=== PATIENT | male | born 1955 | race Caucasian/White ===

== ENCOUNTER → 2022-02-01 | Outpatient (CLI) | payer MEDICARE ==
[2022-02-01 11:49] LABS: INR 0.9 (<1.2); Partial Thromboplastin Time 24.8 sec (22.0-30.0); Prothrombin Time 10.2 sec (9.0-12.0)
[2022-02-01 14:26] LABS: HCT 43.6 % (39.6-50.0); HGB 14.2 g/dL (13.0-17.0); MCH 26.9 pg (27.0-32.0); MCHC 32.6 g/dL (32.0-37.0); MCV 82.6 fL (80.0-97.0); Mean Platelet Volume 9.8 fL (9.5-12.2); NRBC Per 100 WBC 0 /100 WBCS (0.0-0.0); Platelet Count 248 X 10*3/uL (140-440); RBC 5.28 X 10*6/uL (4.40-5.60); RDW 14.6 % (11.5-14.5); WBC 7.15 X 10*3/uL (4.50-10.00)
[2022-02-01 15:26] LABS: African American GFR (CKD) 111.3 (60.0-200.0); Albumin 4.1 g/dL (3.8-4.9); Albumin/Globulin Ratio 1.52 (1.60-3.17); Anion Gap 16.3 mmol/L (10.00-18.00); BUN/Creat Ratio 23.34 Ratio (12.00-20.00); Blood Urea Nitrogen 17.6 mg/dL (9.0-27.0); Calcium 8.9 mg/dL (8.7-10.3); Globulin 2.7 g/dL (1.6-3.3); Non-African American GFR(CKD) 96.1 (60.0-200.0); Potassium 4.4 mmol/L (3.5-5.5); Total Bilirubin 0.4 mg/dL (0.30-1.20); Total Protein 6.8 g/dL (6.2-8.2)
[2022-02-01 18:29] LABS: Appearance,Urine Clear (Clear); Bilirubin,Urine Negative (Negative); Blood,Urine Negative (Negative); Color,Urine Dark Yellow (Yellow); Ketones,Urine Trace mg/dL (Negative); Nitrite,Urine Negative (Negative); PH, Urine 5.5 (5.0-8.0); Specific Gravity,Urine 1.028 (1.001-1.030)
== END | disposition home or self-care (01) ==
LOC: LABPAT 10:22
PROVIDERS: ATTEND Orthopaedic Surgery Sports Medicine
DX: Z01.818 Encounter for other preprocedural examination (principal); Z01.812 Encounter for preprocedural laboratory examination
CPT/HCPCS: 80053; 81003; 85027; 85610; 85730; 87070

== ENCOUNTER 2022-02-16 05:33 | Observation (INO) | payer MEDICARE ==
[2022-02-13 17:43] VITALS: BMI 20.9
[~2022-02-16 05:33] MED LIST: ACETAMINOPHEN TAB 500 MG TAB PO PRN; GABAPENTIN 300 MG CAP PO PRN; MELOXICAM 7.5 MG TAB PO PRN; ONDANSETRON 4 MG/2 ML VIAL IVP PRN; TRANEXAMIC ACID IN NACL,ISO-OS 1,000 MG in SALINE 1 100ML.BAG IVPB PRN
[2022-02-16 06:39] LABS: Glucose,Whole Blood 101 mg/dL (70-110)
[2022-02-16] MEDS ORDERED: LACTATED RINGERS 1,000 ML IV ONE (06:39)
[2022-02-16] MEDS ORDERED: MIDAZOLAM 2 MG/2 ML VIAL IVP ONE (06:41)
[2022-02-16] MEDS ORDERED: fentaNYL (PF) 50 MCG/ML 2 ML AMP IVP ONE (06:41)
[2022-02-16] MEDS ORDERED: DEXAMETHASONE SOD PHOSPHATE 4 MG/ML 1 ML VIAL IVP ONE (07:05)
[2022-02-16] MEDS ORDERED: TEMAZEPAM 15 MG CAP PO PRN (07:11)
[2022-02-16] MEDS ORDERED: traMADol 50 MG TAB PO PRN (07:11)
[2022-02-16] MEDS ORDERED: MAGNESIUM HYDROXIDE 2,400 MG/10 ML CUP PO PRN (07:11)
[2022-02-16] MEDS ORDERED: ROPIVACAINE 5 MG/ML 30 ML VIAL ONE ×2 (07:11)
[2022-02-16] MEDS ORDERED: NALOXONE 0.4 MG/ML 1 ML VIAL IV PRN (07:11)
[2022-02-16] MEDS ORDERED: ONDANSETRON 4 MG/2 ML VIAL IVP PRN (07:11)
[2022-02-16] MEDS ORDERED: PROPOFOL 10 MG/ML 20 ML VIAL IV ONE ×2 (07:11)
[2022-02-16] MEDS ORDERED: HYDROmorphone 1 MG/ML 1 ML SYRINGE IVP PRN (07:11)
[2022-02-16] MEDS ORDERED: PHENYLEPHRINE-0.9% NACL SYG 1,000 MCG/10 ML SYRINGE ONE ×2 (07:11)
[2022-02-16] MEDS ORDERED: diazePAM 5 MG TAB PO PRN (07:11)
[2022-02-16] MEDS ORDERED: SODIUM CHLORIDE 0.9% (PF) 10 ML VIAL ONE ×2 (07:11)
[2022-02-16] MEDS ORDERED: TRANEXAMIC ACID IN NACL,ISO-OS 1,000 MG/100 ML BAG ONE (07:11)
[2022-02-16] MEDS ORDERED: ACETAMINOPHEN TAB 325 MG TAB PO PRN (07:11)
[2022-02-16] MEDS ORDERED: HYDROmorphone 0.5 MG/0.5 ML SYRINGE IVP PRN ×2 (07:11)
[2022-02-16] MEDS ORDERED: NA PHOS,M-B/NA PHOS,DI-BA 133 ML ENEMA RECTAL PRN (07:11)
[2022-02-16] MEDS ORDERED: MIDAZOLAM 2 MG/2 ML VIAL ONE ×2 (07:11)
[2022-02-16] MEDS ORDERED: bisacodyL 10 MG SUPP RECTAL PRN (07:11)
[2022-02-16] MEDS ORDERED: HYDROcodone/APAP 7.5-325MG 1 EACH TAB PO PRN ×2 (07:16)
[2022-02-16] MEDS ORDERED: ceFAZolin 3,000 MG in SODIUM CHLORIDE 0.9% IRRIGATIO 3,000 ML IRRIGATION ONE (07:20)
[2022-02-16] MEDS ORDERED: ROPIVACAINE 0.2%-NS ON-Q PUMP 1,090 MG, EMPTY PAIN BALL 1 EACH MISCELLANE PRN (08:32)
--- NOTE | 2022-02-16 09:48 | OP ---
OPERATIVE REPORT DATE OF PROCEDURE: 02/16/2022. SURGEON: Jossue Monzon MD. PAN PULLER: Amilcar JOYNER. PREOPERATIVE DIAGNOSIS: Left knee osteoarthrosis. POSTOPERATIVE DIAGNOSIS: Left knee osteoarthrosis. OPERATION: Left total knee arthroplasty. ANESTHESIA: Spinal with sedation. ESTIMATED BLOOD LOSS: 100 mL. TOURNIQUET: Tourniquet time was 51 minutes at 250 mmHg. COMPLICATIONS: None apparent. DRAINS: None. DISPOSITION: Postanesthesia care unit. INDICATIONS: Ever is a very pleasant 67-year-old male with longstanding history of left knee pain. History and physical examination are consistent with advanced left knee osteoarthrosis. He has been through significant operative management up to this point. Further treatment options were discussed and he has decided to go forward with left total knee arthroplasty. The risks, procedure were discussed with him in detail. These risks include, but are not limited to risk of infection, nerve damage, bleeding, pain, and a small risk of deep vein thrombosis which could lead to fatal pulmonary embolism. There is also risk of loosening of the implant which could require revision operation. The patient understands these risks. All of his questions were answered to his satisfaction. Appropriate informed consent was obtained. DESCRIPTION OF PROCEDURE: The patient identified in the preoperative holding area. Surgical site was marked by both the patient and myself. He was given 2 grams of Ancef IV for prophylactic purposes. He was then transferred to the operative suite. He was placed supine on the operative table. Spinal anesthetic was then administered, dosed per the anesthesia without apparent complication. Examination under anesthesia was then performed. The patient was 2-3 degrees shy of full extension. He had 100 degrees of flexion. Medial collateral ligament, lateral collateral ligament posterior cruciate ligaments were stable. Tourniquet was then placed high on the left upper thigh well-padded in preparation for surgery. The patient's left lower extremity was then prepped and draped in usual sterile fashion. Standard surgical pause undertaken to ensure that we were operating on the correct site and that appropriate preoperative antibiotics were given. All staff were in agreement and we proceeded. The outlines of the patella were marked surgical pen. A planned 12 cm vertical incision centered over the patella was marked with a surgical pen. Leg was then exsanguinated with an Esmarch dressing. The knee was then flexed and tourniquet inflated to 250 mmHg. The total tourniquet time for the procedure was 51 minutes. Incision was then made with a 10 blade scalpel. Dissection was carried down sharply overlying fascia. Great care was taken to minimize the skin flaps. The knee was then exposed using a standard medial parapatellar approach. A small cuff of quadriceps tendon was then left for suturing. He was in a bit of varus preoperatively. A standard medial release was then made. Superficial medial collateral ligament was dissected off the bone around the posterior aspect of the proximal tibia. The medial meniscus was then excised as well. The lateral meniscus was also released anteriorly. The leg was then externally rotated. The patella was everted. The knee was flexed. Retractors then placed to protect the collateral ligaments. I then proceeded to remove the infrapatellar fat pad. This was excised sharply tangentially with fibers of the patellar tendon. I then proceeded to remove the peripheral osteophytes. This was done with a rongeur. I then proceeded with the distal femoral resection. He did have near full extension. A planned 9 mm resection was then done. The femoral canal was then entered in the midline of the femur approximately 10 mm anterior to the origin of the posterior cruciate ligament. The desmond was then advanced on the center femur and placed intramedullary. Based on the preoperative radiographs, the angle between the anatomic and mechanical axis of the femur was approximately 4-5 degrees with a valgus angle of the distal femoral cutting guide was then set at 4 degrees for the left knee. The distal femoral cutting guide was then advanced over the intramedullary desmond. This was seated firmly against the femur. Then as mentioned planned to take 9 mm off the distal femur. The cutting block was then secured onto the femur with pins. The jig was then removed. The distal femoral cut made through the slot of the block. The pins were then removed and the distal cutting block was removed. The axes of the distal femoral cuts was checked with 2 flat bars. I then proceeded with femoral sizing. Posterior resting sizing guide was held firmly against the resected distal surface of the femur. The posterior condyles were resting on the posterior plane of the guide. The sizing guide was then placed on the anterior femur. The size was measured as a size 9. I then assessed for femoral rotation. The plan was for 3 degrees of external rotation with 3 degrees of external rotation was placed onto the jig. Then, these holes were then marked. I then confirmed the rotation by 3 separate methods. This done using epicondylar axis as well as Whitesides line and posterior referencing. It was deemed that the external rotation was proper. I then went forward placing the femoral cutting block. This was placed over the previously placed pin holes. The Myron wing was then placed on the anterior slots to ensure that we would not notch the anterior femur with the anterior femoral cut. I then proceeded with the anterior femoral cut. This was flush with the anterior cortex of the femur. The posterior cuts were then made followed by the anterior chamfer cut, then the posterior chamfer cut. The cutting block was then removed. Throughout the resection, the collateral ligaments were protected with retractors. I then placed a trial size 9 femur. It was slightly wide with a narrow fit very nicely medial-lateral and fit flush with the distal end of the femur. The drill holes were then made. I then proceeded with the tibial cut. I planned for cruciate retaining knee. The guide was placed in separate varus valgus and for slope. Height set for approximate 2 mm resection from the medial tibial plateau which was the lower side. I was happy with the alignment and amount of resection. The cutting block was then pinned to the proximal tibia. The alignment desmond was removed. The proximal tibia was resected with a reciprocating saw. Again, this was done with retractors protecting the collateral ligaments as well as the posterior cruciate ligament. I then proceeded to evaluate the flexion extension gaps. A 10 mm block was then placed. The flexion and extension gaps were equal. I then proceed with resection of posterior osteophytes. He had very minimal posterior osteophytes. This was done using a curved osteotome. This resected the posterior osteophytes. The posterior capsule stripping was done off the posterior aspect of the femur at this time. The osteophytes were then removed. I then proceed with resection of the patella. The thickness of patella was measured using the caliper. The thickness was 22 mm. The thickness of the anticipated patellar dome was taken into account. Resection was then performed and confirmed to be equal in 4 quadrants using a caliper. Approximately 14 mm of bone remained after the resection. A 32 x 9 mm standard patellar trial was then placed. The holes drilled. The trial was then placed. I then proceeded with the sizing tibial plate. A size E tibial plate fit very nicely. I then placed the trial femur the tibial tray and patellar button. A 10 mm trial tibial insert was also placed. The components fit very nicely. He had full extension and flexion. The extension and flexion gaps were equal and stable to both varus and valgus stress. The patella tracked appropriately. The tibial tray rotation was then marked with a Bovie. This was externally rotated properly. I then proceeded with the tibial preparation. I first drilled the femoral holes and removed femoral component. The tibial tray was then set for proper external rotation as well as mediolateral placement onto the tibia. It was then pinned into place. I then proceeded with punching the keel. I then decided to proceed with cementing of all our components. The knee was thoroughly irrigated with sterile saline solution via pulse lavage. The lateral geniculate artery was identified and cauterized. All blood was removed from the bone of the tibia femur and patella with pulse lavage. I then proceeded with cementing. Two packs of antibiotic bone cement prepared on the back table by the roving technician. I then proceed with cementing the tibia first. Cement was impacted into the keel as well as deeply seated into the bone. A second coat of cement was then placed. The tibia was then impacted into place. Excess cement was removed with Zane's and Joker's. I then proceeded with cementing of the femoral component. The femoral component was also cemented using standard technique. Excess cement was removed. A 10 mm trial insert was then placed into the knee. It was brought into full extension with a constant axial load placed until the cement had hardened. The patellar component was then cemented. This was held firmly with a compressive device until the cement had dried. When the cement had dried, the knee was taken out of extension. All excess cement was removed from around the prosthesis. I then trialed the 10 mm insert. Flexion extension gaps were appropriate. The knee was stable. It came into full extension. I decided to go forward with 10 mm medial congruent cruciate cross-linked cruciate- retaining tibial insert. The polyethylene was then placed onto the tibial tray and locked in place. The knee was then reduced. The knee was again further irrigated with sterile saline solution with antibiotic added. The tourniquet was then deflated. The total tourniquet time for the procedure was 51 minutes at 250 mmHg. Final components were Sue Persona size 9 narrow cruciate-retaining femoral component, a size E tibial tray, a 10 mm medial congruent cruciate-retaining polyethylene insert and a 32 x 9 mm patella. I then proceeded with closure. Again, the knee was thoroughly irrigated. The quadriceps tendon and the medial retinaculum were reapproximated with #2 Ethibond suture. The extensor mechanism was then closed with a running #2 Quill suture. Subcutaneous tissues were closed with 2-0 Vicryl interrupted suture. The skin was closed with a running 3-0 Quill suture. Dermabond was applied to the incision. Sterile compressive dressings were applied. All sponge and needle counts were deemed correct prior to closure. The patient tolerated procedure without apparent complication. He was transferred to recovery room in stable condition. MMODL / IJN: [id number] /
--- NOTE | 2022-02-16 09:50 | XR ---
EXAMINATION TYPE: XR knee limited LT DATE OF EXAM: 02/16/2022 COMPARISON: None HISTORY: Postop evaluation post replacement TECHNIQUE: 2 view left knee FINDINGS: Tibial and femoral components of the place. Postsurgical changes in the soft tissues no acu te fracture or dislocation is evident. IMPRESSION: 1. No acute fractures post knee replacement.
--- NOTE | 2022-02-16 09:53 | P.ANPRN ---
Procedure Note - Anesthesia - Nerve Block Performed Left Adductor Canal Time Out Performed: Yes (6:40) Date of Procedure: 02/16/22 Procedure Start Time: :40 Procedure Stop Time: 06:51 Location of Patient: PreOp Indication: Acute Post-Operative Pain, Requested by Surgeon (Dr Monzon) Sedation Type: Sedate with meaningful contact maintained Preparation: Sterile Prep, Sterile Dressing Position: Supine Catheter: Indwelling Needle Types: Pajunk Needle Gauge: 21 Ultrasound used to visualize needle placement: Yes Ultrasound used to observe medication spread: Yes Injectate: 0.5% Ropivacaine (see comment for volume) (15cc) Blood Aspirated: No Pain Paresthesia on Injection Noted: No Resistance on Injection: Normal Image Stored and Saved: Yes Events: Uneventful and Well Tolerated
--- NOTE | 2022-02-16 09:55 | P.ANPRN ---
Procedure Note - Anesthesia - Nerve Block Performed Left iPack Time Out Performed: Yes Date of Procedure: 02/16/22 Procedure Start Time: 06:52 Procedure Stop Time: 06:58 Location of Patient: PreOp Indication: Acute Post-Operative Pain, Requested by Surgeon (Dr Monzon) Sedation Type: Sedate with meaningful contact maintained Preparation: Sterile Prep Position: Supine Catheter: None Needle Types: Pajunk Needle Gauge: 21 Ultrasound used to visualize needle placement: Yes Ultrasound used to observe medication spread: Yes Injectate: 0.5% Ropivacaine (see comment for volume) (15cc +5cc PF Normal saline) Blood Aspirated: No Pain Paresthesia on Injection Noted: No Resistance on Injection: Normal Image Stored and Saved: Yes Events: Uneventful and Well Tolerated
[2022-02-16] MEDS ORDERED: LACTATED RINGERS 1,000 ML IV SCH (11:47)
[2022-02-16] MEDS ORDERED: DEXAMETHASONE SOD PHOSPHATE 4 MG/ML 1 ML VIAL IV ONE (11:47)
[2022-02-16] MEDS ORDERED: ONDANSETRON 4 MG/2 ML VIAL IVP ONE (11:47)
[2022-02-16] MEDS: LACTATED RINGERS 1,000 ML IV SCH ×2 (11:53→14:45)
[2022-02-16] MEDS: traMADol 50 MG TAB PO SCH ×3 (12:51→23:59)
--- NOTE | 2022-02-16 15:31 | P.CONS ---
History of Present Illness - Reason for Consult Consult date: 02/16/22 Physical management Requesting physician: Jossue Monzon - Chief Complaint Left knee pain - History of Present Illness This is a pleasant 67-year-old patient. Dr. Clemons. Patient has undergone left total knee arthroplasty. Postprocedure pain is controlled. Patient did get to the bathroom. No nausea vomiting. Patient has arthritis in all to point joints. Has tried conservative measurements. Does have analgesics at home. Symptoms of progressive the point that he required surgery. Patient also has BPH. Not taking any medications for the same. Also has nocturia and does get up at night to make urine. Sleep does get interrupted from the same. Review of systems: GEN.: None EYES: None HEENT: None NECK: None RESPIRATORY: None CARDIOVASCULAR: None GASTROINTESTINAL: None GENITOURINARY: Nocturia MUSCULOSKELETAL: Pain in many joints LYMPHATICS: None HEMATOLOGICAL: None PSYCHIATRY: None NEUROLOGICAL: None Past medical history to include: Osteoarthritis, BPH, nocturia, varicose veins, COPD Social history: . Retired. On the [employer]. Smoking less than a pack a day and a smoker most of life. Family history: Reviewed, noncontributory to presentation Physical examination: VITAL SIGNS: 97.1, 75, 18, 128.7, 94% room air] GENERAL: BMI 20.7, reclining in bed awake comfortable. EYES: Pupils equal. Conjunctiva normal. HEENT: External appearance of nose and ears normal, oral cavity grossly normal. NECK: JVD not raised; masses not palpable. HEART: First and second heart sounds are normal; no edema. LUNGS: Respiratory rate normal; clear to auscultation. ABDOMEN: Soft, nontender, liver spleen not palpable, no masses palpable. PSYCH: Alert and oriented x3; mood and affect normal. MUSCULOSKELETAL:No Clubbing/cyanosis;muscles-grossly intact. Evidence of OA in many joints. Dressing over the left knee. NEUROLOGICAL: Cranial nerves grossly intact; no facial asymmetry, power and sensation grossly intact. LYMPHATICS: No lymph nodes palpable in the axilla and neck INVESTIGATIONS, reviewed in the clinical context: White count 7.1 hemoglobin 14.2 platelets 248 potassium 4.4 creatinine 0.8 Assessment and plan: -Left total knee arthroplasty. Aspirin 81 mg twice a day for DVT prophylaxis. IV Ancef for infection prophylaxis. Pain control. -BPH Discussed at length with the patient. Patient has not wanted to take any medications for the same -Nocturia likely from BPH with overflow Discussed medications with the patient -COPD in a current smoker No symptoms -Chronic nicotine dependence, cigarette smoker Nicotine patch *For DVT prophylaxis. Nicotine patch. Care was discussed with the patient. Questions answered. Thank you Dr. Monzon Past Medical History Past Medical History: Asthma, Osteoarthritis (OA), Rheumatoid Arthritis (RA) Additional Past Medical History / Comment(s): Hx HPV. BPH. Varicose veins. History of Any Multi-Drug Resistant Organisms: None Reported Past Surgical History: Tonsillectomy Additional Past Surgical History / Comment(s): Bilat cataracts. Dental surgery Past Anesthesia/Blood Transfusion Reactions: No Reported Reaction Smoking Status: Current every day smoker - Past Family History Mother Family Medical History: No Reported History Medications and Allergies Home Medications Medication Instructions Recorded Confirmed Type Albuterol Sulfate [Albuterol 2 puff INHALATION QID PRN 02/13/22 02/16/22 History Sulfate Hfa] Hydrocodone/Acetaminophen 1 each PO HS PRN 02/13/22 02/16/22 History [Hydrocodone/Acetaminophen 7.5-325] traMADol HCl [Ultram] 50 mg PO Q4-6H PRN 02/13/22 02/16/22 History Allergies Allergy/AdvReac Type Severity Reaction Status Date / Time No Known Allergies Allergy Verified 02/16/22 05:48 Physical Exam Vitals: Vital Signs Temp Pulse Resp BP Pulse Ox 02/16/22 11:00 61 16 120/77 95 02/16/22 10:45 68 17 117/79 94 L 02/16/22 10:30 64 22 124/84 96 02/16/22 10:15 70 16 118/91 94 L 02/16/22 10:00 75 18 128/72 94 L 02/16/22 09:45 97.1 F L 02/16/22 09:38 83 15 118/66 96 02/16/22 09:23 79 16 113/60 97 02/16/22 09:08 80 16 119/62 97 02/16/22 07:01 83 16 124/70 100 02/16/22 06:07 98.2 F 86 18 137/81 99 Intake and Output 02/16/22 02/16/22 02/16/22 06:59 14:59 22:59 Intake Total 200 501 Output Total 100 Balance 200 401 Intake: IV 200 501 Output: Estimated Blood Loss 100 Other: Weight 65.5 kg 65.5 kg
[2022-02-16] MEDS: ASPIRIN 81 MG PO SCH (19:32)
[2022-02-16] MEDS ORDERED: SENNOSIDES-DOCUSATE SODIUM 1 EACH TAB PO SCH (21:00)
[2022-02-17] MEDS ORDERED: HYDROmorphone 0.5 MG/0.5 ML SYRINGE IVP PRN (07:00)
[2022-02-17 08:05] VITALS: BP 113/70; RESP 17; TEMP 98.7
[2022-02-17] MEDS: traMADol 50 MG TAB PO SCH (08:58)
[2022-02-17] MEDS: ASPIRIN 81 MG PO SCH (08:58)
[2022-02-17 09:04] LABS: Basophils # (A) 0.03 X 10*3/uL (0.00-0.10); Basophils % (A) 0.3 %; Eosinophils # (A) 0.02 X 10*3/uL (0.04-0.35); Eosinophils % (A) 0.2 %; HCT 35.2 % (39.6-50.0); HGB 11.8 g/dL (13.0-17.0); Immature Grans, Automated 0.3 %; Lymphocytes # (A) 2.48 X 10*3/uL (0.90-5.00); Lymphocytes % (A) 23.4 %; MCH 27.6 pg (27.0-32.0); MCHC 33.5 g/dL (32.0-37.0); MCV 82.2 fL (80.0-97.0); Mean Platelet Volume 9.8 fL (9.5-12.2); Monocytes # (A) 1.06 X 10*3/uL (0.20-1.00); NRBC Per 100 WBC 0 /100 WBCS (0.0-0.0); Neutrophils % (A) 65.8 %; Platelet Count 246 X 10*3/uL (140-440); RBC 4.28 X 10*6/uL (4.40-5.60); RDW 14.1 % (11.5-14.5); WBC 10.62 X 10*3/uL (4.50-10.00)
--- NOTE | 2022-02-17 10:18 | P.PN ---
Progress Note - Text 02/17/22 601 67-year-old male status post total knee replacement by Dr. Monzon. Patient seen and evaluated this morning for postop pain control, On-Q pump running at 8 mL an hour with a VAS of 1. Dressing clean dry and intact. Plan to continue On-Q pump infusion
--- NOTE | 2022-02-17 10:27 | P.DS ---
Providers Date of admission: 02/17/22 07:16 Expected date of discharge: 02/17/22 Attending physician: Jossue Monzon Consults: 02/16/22 07:11 Consult Physician Routine Consulting Provider: Aryan Francisco Consult Reason/Comments: post op medical management Do you want consulting provider notified?: Yes Primary care physician: Johny Clemons - Discharge Diagnosis(es) (1) S/P total knee arthroplasty Patient was admitted to the OR on 02/16/22 to undergo a left total knee arthroplasty. He had failed conservative measures as an outpatient and desired to proceed with elective surgery after given informed consent. He underwent the above procedure which he tolerated well without complication. Postoperative hospital course has remained without complication. On day of discharge he is afebrile, vital signs stable, labs within acceptable ranges, tolerating by mouth meds and diet, voiding without difficulty, positive flatus, denies abdominal pain or calf pain, pain is controlled on oral pain medication and has no new complaints. Wound is benign, neurovascular status is intact, calf is soft and nontender, abdomen soft and nontender. Review of systems is negative for numbness, tingling, fever, chills, chest pain, shortness of breath, nausea, vomiting, dizziness, headaches, slurred speech or other. Current Visit: Yes Status: Acute Priority: Medium Procedures: Left TKA Patient Condition at Discharge: Good Plan - Discharge Summary Discharge Rx Participant: No New Discharge Prescriptions: New Acetaminophen Tab [Tylenol] 650 mg PO Q4HR PRN tab PRN Reason: Pain Scale 1 to 5 Docusate [Colace] 100 mg PO BID #60 capsule HYDROcodone/APAP 7.5-325MG [Eden 7.5-325] 1 - 2 each PO Q6HR PRN #42 tab PRN Reason: Pain Ferrous Sulfate [Feosol] 325 mg PO BID #60 tab Aspirin [Adult Low Dose Aspirin EC] 81 mg PO BID #60 tab Continue Hydrocodone/Acetaminophen [Hydrocodone/Acetaminophen 7.5-325] 1 each PO HS PRN PRN Reason: Pain traMADol HCl [Ultram] 50 mg PO Q4-6H PRN PRN Reason: Pain Albuterol Sulfate [Albuterol Sulfate Hfa] 2 puff INHALATION QID PRN #1 each PRN Reason: Shortness Of Breath Discharge Medication List Hydrocodone/Acetaminophen [Hydrocodone/Acetaminophen 7.5-325] 1 each PO HS PRN 02/13/22 [History] traMADol HCl [Ultram] 50 mg PO Q4-6H PRN 02/13/22 [History] Acetaminophen Tab [Tylenol] 650 mg PO Q4HR PRN tab 02/17/22 [Rx] Albuterol Sulfate [Albuterol Sulfate Hfa] 2 puff INHALATION QID PRN #1 each 02/17/22 [Rx] Aspirin [Adult Low Dose Aspirin EC] 81 mg PO BID #60 tab 02/17/22 [Rx] Docusate [Colace] 100 mg PO BID #60 capsule 02/17/22 [Rx] Ferrous Sulfate [Feosol] 325 mg PO BID #60 tab 02/17/22 [Rx] HYDROcodone/APAP 7.5-325MG [Eden 7.5-325] 1 - 2 each PO Q6HR PRN #42 tab 02/17/22 [Rx] Follow up Appointment(s)/Referral(s): Johny Clemons DO [Primary Care Provider] - 1 Week [facility] [NON-STAFF] - As Needed Jossue Monzon MD [STAFF PHYSICIAN] - 10 Days Activity/Diet/Wound Care/Special Instructions: Weight bear as tolerated May shower after 3 days if no bleeding Keep wound clean and dry Take meds as directed F/U with Dr. Monzon in office Discharge Disposition: HOME WITH HOME HEALTH SERVICES
[2022-02-17 10:54] VITALS: PULSE 87
[2022-02-17] MEDS ORDERED: MULTIVITAMINS, THERA 1 EACH TAB PO SCH (12:00)
--- NOTE | 2022-02-17 17:12 | P.PN ---
Progress Note - Text Progress Note Date: 02/17/22 - Chief Complaint Left knee pain Hospital course This is a pleasant 67-year-old patient. Dr. Clemons. Patient has undergone left total knee arthroplasty. Postprocedure pain is controlled. Patient did get to the bathroom. No nausea vomiting. Patient has arthritis in all to point joints. Has tried conservative measurements. Does have analgesics at home. Symptoms of progressive the point that he required surgery. Patient also has BPH. Not taking any medications for the same. Also has nocturia and does get up at night to make urine. Sleep does get interrupted from the same. February 17: Some pain at the operative site. Discussed with patient. Ferrous sulfate. Questions answered. Oral intake fair. Current medications reviewed Past medical history to include: Osteoarthritis, BPH, nocturia, varicose veins, COPD Social history: . Retired. On the [employer]. Smoking less than a pack a day and a smoker most of life. Family history: Reviewed, noncontributory to presentation Physical examination: VITAL SIGNS: 98.7, 66, 17, 103/70, 96% room air GENERAL: reclining in bed awake comfortable. EYES: Pupils equal. Conjunctiva normal. HEENT: External appearance of nose and ears normal, oral cavity grossly normal. NECK: JVD not raised; masses not palpable. HEART: First and second heart sounds are normal; no edema. LUNGS: Respiratory rate normal; clear to auscultation. ABDOMEN: Soft, nontender, liver spleen not palpable, no masses palpable. PSYCH: Alert and oriented x3; mood and affect normal. MUSCULOSKELETAL:No Clubbing/cyanosis;muscles-grossly intact. Evidence of OA in many joints. Dressing over the left knee. INVESTIGATIONS, reviewed in the clinical context: February 17: Vicodin 10.6 hemoglobin 11.8 platelets 246 White count 7.1 hemoglobin 14.2 platelets 248 potassium 4.4 creatinine 0.8 Assessment and plan: -Left total knee arthroplasty. Aspirin 81 mg twice a day for DVT prophylaxis. IV Ancef for infection prophylaxis. Pain control. -BPH Discussed at length with the patient. Patient has not wanted to take any medications for the same -Nocturia likely from BPH with overflow Discussed medications with the patient -COPD in a current smoker No symptoms -Acute postprocedure blood loss anemia as expected from surgery Ferrous sulfate supplement -Chronic nicotine dependence, cigarette smoker Nicotine patch Ferrous sulfate supplement. Other medications to continue. Questions answered. Thank you Dr. Monzon
== END 2022-02-17 14:01 | disposition home health service (06) ==
LOC: OR 05:33 → 4SSUR 11:41 → OR 02-17 07:16 → 4SSUR 02-17 07:16
PROVIDERS: ADMIT Orthopaedic Surgery Sports Medicine; ATTEND Orthopaedic Surgery Sports Medicine
DX: M17.12 Unilateral primary osteoarthritis, left knee (principal); M25.762 Osteophyte, left knee; D50.0 Iron deficiency anemia secondary to blood loss (chronic); M06.9 Rheumatoid arthritis, unspecified; J45.909 Unspecified asthma, uncomplicated; R26.81 Unsteadiness on feet; F17.210 Nicotine dependence, cigarettes, uncomplicated; Z98.49 Cataract extraction status, unspecified eye; Z96.1 Presence of intraocular lens; Z97.2 Presence of dental prosthetic device (complete) (partial); Z83.3 Family history of diabetes mellitus; N40.1 Benign prostatic hyperplasia with lower urinary tract symptoms; R35.1 Nocturia; J44.9 Chronic obstructive pulmonary disease, unspecified; Z82.49 Family history of ischemic heart disease and other diseases of the circulatory system; I83.90 Asymptomatic varicose veins of unspecified lower extremity; Z79.1 Long term (current) use of non-steroidal anti-inflammatories (NSAID); Z79.891 Long term (current) use of opiate analgesic; Z79.899 Other long term (current) drug therapy; Z88.8 Allergy status to other drugs, medicaments and biological substances
CPT/HCPCS: 97161; 64999; 64448; 76942; 85025; 88300; 73560; 27447; G0378; C1776; C1713; J2250; J1100; J0690 ×3; J2405; J3010; J2795; J2370; J2704; J1170

== ENCOUNTER → 2022-08-28 | Outpatient (CLI) | payer MEDICARE ==
[2022-08-28 17:53] LABS: HCT 41.4 % (39.6-50.0); HGB 13.5 g/dL (13.0-17.0); MCH 27.4 pg (27.0-32.0); MCHC 32.6 g/dL (32.0-37.0); MCV 84.1 fL (80.0-97.0); Mean Platelet Volume 10.3 fL (9.5-12.2); NRBC Per 100 WBC 0 /100 WBCS (0.0-0.0); Platelet Count 226 X 10*3/uL (140-440); RBC 4.92 X 10*6/uL (4.40-5.60); RDW 15.1 % (11.5-14.5); WBC 5.24 X 10*3/uL (4.50-10.00)
[2022-08-28 18:20] LABS: African American GFR (CKD) 106.1 (60.0-200.0); Anion Gap 11.1 mmol/L (10.00-18.00); BUN/Creat Ratio 21.34 Ratio (12.00-20.00); Blood Urea Nitrogen 18.1 mg/dL (9.0-27.0); Calcium 8.8 mg/dL (8.7-10.3); Carbon Dioxide 25.3 mmol/L (20.0-27.5); Non-African American GFR(CKD) 91.5 (60.0-200.0)
== END | disposition home or self-care (01) ==
LOC: LABWHC1 12:48
PROVIDERS: ATTEND Family Medicine
DX: M06.9 Rheumatoid arthritis, unspecified (principal)
CPT/HCPCS: 36415; 80048; 82306; 83036; 84450; 84460; 85027

== ENCOUNTER → 2023-03-12 | Outpatient (CLI) | payer MEDICARE | END | disposition home or self-care (01) | LOC: LABWHC1 10:29 | PROVIDERS: ATTEND Family Medicine | DX: Z00.01 Encounter for general adult medical examination with abnormal findings (principal) | CPT/HCPCS: 36415; 84153 ==